=== PATIENT | female | born 1955 | race Caucasian/White ===

== ENCOUNTER 2017-01-15 07:18 | Day surgery (SDC) | payer MEDICARE, OTHER ==
[~2017-01-15 07:18] MED LIST: Lactated Ringers 1,000 ML IV SCH; Lidocaine 1%/Sod Bicarbonate in NS 8.4% 1 ML Syringe PRN; Sodium Chloride 0.9% 10 ML Syringe FLUSH PRN
[2017-01-15] MEDS ORDERED: Rocuronium 50 MG/5 ML Vial ONE (07:20)
[2017-01-15] MEDS ORDERED: Ondansetron 4 MG/2 ML SDV ONE (07:20)
[2017-01-15] MEDS ORDERED: Propofol 200 MG/20 ML SDV ONE (07:20)
[2017-01-15] MEDS ORDERED: fentaNYL 100 MCG/2 ML SDV ONE (07:20)
[2017-01-15] MEDS ORDERED: ceFAZolin 1 GM Vial ONE (07:21)
[2017-01-15] MEDS ORDERED: Midazolam 1 MG/ML 2 ML SDV ONE (07:21)
[2017-01-15] MEDS ORDERED: Lidocaine 1% 4 ML ONE (07:21)
[2017-01-15] MEDS ORDERED: Ropivacaine 0.5% 5 MG/ML 30 ML SDV ONE (07:32)
[2017-01-15] MEDS ORDERED: EPINEPHrine 1 MG/ML SDV ONE (07:32)
[2017-01-15] MEDS ORDERED: Lidocaine 1% 2 ML ONE (07:33)
--- NOTE | 2017-01-15 07:47 | PCM.PREANE ---
Preanesthetic Assessment - Anesthesia/Transfusion/Family Hx Anesthesia History: Prior Anesthesia Without Reaction Family History of Anesthesia Reaction: No Transfusion History: No Prior Transfusion(s) - Review of Systems General: No Symptoms Pulmonary: No Symptoms Cardiovascular: No Symptoms Gastrointestinal: No Symptoms Neurological: No Symptoms Other: Reports: Thyroid Problems - Physical Assessment NPO Status Date: 01/14/17 NPO Status Time: 00:00 Pulse: 79 O2 Sat by Pulse Oximetry: 96 Respiratory Rate: 16 Blood Pressure: 108/51 Temperature: 37.3 C Height: 1.6 m Weight: 85.729 kg ASA Class: 3 Mental Status: Alert & Oriented x3 Dentition: Reports: Bridge (bottom right) Thyro-Mental Finger Breadths: 3 Mouth Opening Finger Breadths: 3 ROM/Head Extension: Full Lungs: Clear to Auscultation, Normal Respiratory Effort Cardiovascular: Regular Rate, Regular Rhythm - Lab Values: Laboratory Last Values MRSA (PCR) Negative 01/02/17 11:16 - Allergies Allergies/Adverse Reactions: Allergies Allergy/AdvReac Type Severity Reaction Status Date / Time atorvastatin calcium Allergy malaise Verified 01/12/17 16:02 [From Lipitor] azithromycin [From Zithromax] Allergy Mouth Sores Verified 01/12/17 16:02 latex Allergy Rash Verified 01/12/17 16:02 Penicillins Allergy Mouth Sores Verified 01/12/17 16:02 rosuvastatin [From Crestor] Allergy malaise Verified 01/12/17 16:02 - Anesthesia Plan Pre-Op Medication Ordered: Beta Angelina Beta Angelina: Metoprolol Med Last Dose Date: 01/15/17 Med Last Dose Time: 06:30 - Acknowledgements Anesthesia Type Planned: General Anesthesia, Regional Block (interscalene block for post op pain control) Pt an Appropriate Candidate for the Planned Anesthesia: Yes Alternatives and Risks of Anesthesia Discussed w Pt/Guardian: Yes Pt/Guardian Understands and Agrees with Anesthesia Plan: Yes PreAnesthesia Questionnaire HEENT History: Reports: Impaired Vision, Other (See Below) Other HEENT History: wears glasses Cardiovascular History: Reports: High Cholesterol, Hypertension Respiratory History: Reports: Sleep Apnea Other Respiratory History: CPAP Gastrointestinal History: Reports: GERD, Hiatal Hernia, Irritable Bowel Syndrome Other Gastrointestinal History: LUQ pain, sheila's gland hyperplasia of duodenum, gastritis, gastruc ulcer, peptic stricture of esophagus, reflux esophagitis Genitourinary History: Reports: Other (See Below) Other Genitourinary History: renal insufficiency, increased serum creatinine SCARRER History: Reports: None Musculoskeletal History: Reports: Back Pain, Chronic, Fibromyalgia, Other (See Below) Other Musculoskeletal History: bilateral carpal tunnel syndrome, lumbar degenerative disc disease Neurological History: Reports: None Psychiatric History: Reports: Anxiety, Depression Other Psychiatric History: history of psychotherapy treatment Endocrine/Metabolic History: Reports: Hypothyroidism, Obesity/BMI 30+ Hematologic History: Reports: Anemia Immunologic History: Reports: None Oncologic (Cancer) History: Reports: None Dermatologic History: Reports: Psoriasis - Past Surgical History Head Surgeries/Procedures: Reports: None GI Surgical History: Reports: Colonoscopy, EGD Other Musculoskeletal Surgeries/Procedures:: L carpal tunnel release, L3 discectomy and fusion, L4L5 laminectomy, L shoulder surgery - SUBSTANCE USE Smoking Status *Q: Never Smoker Second Hand Smoke Exposure: No Recreational Drug Use History: No - HOME MEDS Home Medications: Home Meds Methylcellulose [Citrucel] 500 mg PO BID 01/13/15 [History] Metoprolol Succinate [Toprol XL] 25 mg PO DAILY 01/13/15 [History] buPROPion [Wellbutrin XL] 150 mg PO DAILY 01/13/15 [History] buPROPion [Wellbutrin XL] 300 mg PO DAILY 01/13/15 [History] Ascorbic Acid [Vitamin C] 250 mg PO DAILY 01/12/17 [History] C-Bi-Est 1 dose .ROUTE DAILY 01/12/17 [History] C-Progesterone 1 applic .ROUTE DAILY 01/12/17 [History] Cholecalciferol (Vitamin D3) [Vitamin D3] 1 ml PO DAILY 01/12/17 [History] Diclofenac Sodium/Misoprostol [Arthrotec 75 mg-200 Mcg Tab] 1 tab PO BID [History] Fluocinonide [Lidex 0.05% Crm] 1 applic TOP DAILY PRN 01/12/17 [History] Lisinopril 10 mg PO DAILY 01/12/17 [History] Loteprednol Etabonate [Lotemax] 1 applic EYEBOTH BEDTIME PRN 01/12/17 [History] Metaxalone [Skelaxin] 800 mg PO TID 01/12/17 [History] Olopatadine HCl [Pataday] 1 drop EYEBOTH BEDTIME 01/12/17 [History] Omeprazole 40 mg PO BID 01/12/17 [History] Pravastatin Sodium 20 mg PO DAILY 01/12/17 [History] Ranitidine [Zantac] 150 mg PO BEDTIME 01/12/17 [History] Thyroid [[place] Thyroid] 60 mg PO SUTUTHSA 01/12/17 [History] Thyroid [[place] Thyroid] 90 mg PO MOWEFR 01/12/17 [History] Vortioxetine Hydrobromide [Trintellix] 10 mg PO DAILY 01/12/17 [History] Acetaminophen/oxyCODONE [Percocet 325-5 MG] 1 - 2 tab PO Q6H PRN #40 tablet [Rx] Cyclobenzaprine [Flexeril] 10 mg PO TID PRN #40 tablet 01/15/17 [Rx] - CURRENT (IN HOUSE) MEDS Current Meds: Current Medications Lactated Ringer's (Ringers, Lactated) 1,000 mls @ 125 mls/hr IV ASDIRECTED JIGNESH Stop: 01/15/17 23:00 Lidocaine/Sodium Bicarbonate (Buffered Lidocaine 1% In Ns 8.4%) 0.25 ml .XX ONETIME PRN PRN Reason: Prior to IV Start Stop: 01/15/17 18:00 Sodium Chloride (Saline Flush) 10 ml FLUSH ASDIRECTED PRN PRN Reason: Keep Vein Open Stop: 01/15/17 18:00 Discontinued Medications Cefazolin Sodium (Ancef) Confirm Administered Dose 2 gm .ROUTE .STK-MED ONE Stop: 01/15/17 07:22 Epinephrine HCl (Adrenalin 1:1000) Confirm Administered Dose 1 mg .ROUTE .STK- MED ONE Stop: 01/15/17 07:33 Fentanyl (Sublimaze) Confirm Administered Dose 100 mcg .ROUTE .STK-MED ONE Stop: 01/15/17 07:21 Lactated Ringer's (Ringers, Lactated) 1,000 mls @ 125 mls/hr IV ASDIRECTED JIGNESH Stop: 01/11/17 23:00 Lidocaine HCl (Xylocaine-Mpf 1%) Confirm Administered Dose 4 mls @ as directed .ROUTE .STK-MED ONE Stop: 01/15/17 07:22 Lidocaine HCl (Xylocaine-Mpf 1%) Confirm Administered Dose 2 mls @ as directed .ROUTE .STK-MED ONE Stop: 01/15/17 07:34 Lidocaine/Sodium Bicarbonate (Buffered Lidocaine 1% In Ns 8.4%) 0.25 ml .XX ONETIME PRN PRN Reason: Prior to IV Start Stop: 01/11/17 18:00 Midazolam HCl (Versed 1 Mg/Ml) Confirm Administered Dose 2 mg .ROUTE .STK-MED ONE Stop: 01/15/17 07:22 Ondansetron HCl (Zofran) Confirm Administered Dose 4 mg .ROUTE .STK-MED ONE Stop: 01/15/17 07:21 Propofol (Diprivan 20 Ml) Confirm Administered Dose 200 mg .ROUTE .STK-MED ONE Stop: 01/15/17 07:21 Rocuronium [place] (Zemuron) Confirm Administered Dose 50 mg .ROUTE .STK-MED ONE Stop: 01/15/17 07:21 Ropivacaine (Naropin 0.5%) Confirm Administered Dose 30 ml .ROUTE .STK-MED ONE Stop: 01/15/17 07:33 Sodium Chloride (Saline Flush) 10 ml FLUSH ASDIRECTED PRN PRN Reason: Keep Vein Open Stop: 01/11/17 18:00
--- NOTE | 2017-01-15 08:50 | PCM.SN ---
- Free Text/Narrative Note: Note: 01/15/2017 0847 120/71 75 100% 16 Surgeon and pt request post-op pain control for right shoulder surgery risk of block failure, facial numbness, site infection, and chronic pain discussed with pt and agreed to proceed. All standard monitors est. EKG, BP, Pulse Ox, 2L O2 and 2ml versed, 1ml fentanyl pre-op dx. right shoulder pain post-op dx right shoulder arthroscopy pt for interscalene block placement all standard monitors est. pt ID time out performed IV sedation 2ml versed, 1ml fentanyl, 2L NC O2, sterile prep and drape of right neck and shoulder U/S placed with visualization of brachial plexus from clavicle to cricoid local skin infiltration 22ga. Stimplex A insulated needle visualized at brachial plexus nerve stimulator at .9 Vanessa Amps stop at .3 Vanessa Amps with good bicep twitch with 1ml NaCl and lose of twitch neg aspirations every 5ml of 0.5% ropivacaine and 1:200,000 epi total of 30ml injected all done with U/S guidance needle withdrawn no complications noted pt tolerated procedure well block settling in start procedure at 0804 end procedure at 0824 119/62 79 100% 20
[2017-01-15] MEDS ORDERED: Bupivacaine 0.25% 10 ML SDV ONE ×2 (09:53→10:17)
[2017-01-15] MEDS ORDERED: EPINEPHrine 1 MG/ML 30 ML MDV ONE (09:54)
[2017-01-15] MEDS ORDERED: Dexamethasone 4 MG/ML 5 ML MDV ONE (11:22)
--- NOTE | 2017-01-15 12:31 | PCM.POSTAN ---
POST ANESTHESIA ASSESSMENT - MENTAL STATUS Mental Status: Alert, Oriented - VITAL SIGNS Pulse Rate: 81 SaO2: 96 Resp Rate: 14 Blood Pressure: 119/68 Temperature: 36.3 C - RESPIRATORY Respiratory Status: respiratory rate WNL, Airway Patent, O2 Saturation Stable, Supplemental Oxygen - CARDIOVASCULAR CV Status: Pulse Rate WNL, Blood Pressure Stable - GASTROINTESTINAL GI Status: No Symptoms - PAIN Pain Score: 0 - POST OP HYDRATION Hydration Status: Adequate & Stable - OBSERVATIONS Free Text/Narrative:: no anesthetic complications noted
[2017-01-15] MEDS ORDERED: fentaNYL 100 MCG/2 ML SDV IVPUSH PRN (12:35)
--- NOTE | 2017-01-15 13:00 | PCM48HPAN ---
Post Anesthesia Note - EVALUATION WITHIN 48HRS OF ANESTHETIC Vital Signs in Normal Range: Yes Patient Participated in Evaluation: Yes Respiratory Function Stable: Yes Airway Patent: Yes Cardiovascular Function Stable: Yes Hydration Status Stable: Yes Pain Control Satisfactory: Yes Nausea and Vomiting Control Satisfactory: Yes Mental Status Recovered: Yes
[2017-01-15] MEDS ORDERED: Acetaminophen/oxyCODONE 325-5 MG Tab PO PRN ×3 (14:10→14:28)
[2017-01-15 15:25] VITALS: BP 120/62
--- NOTE | 2017-01-17 22:59 | PCM.OPNOTE ---
- General Post-Op/Procedure Note Date of Surgery/Procedure: 01/15/17 Operative Procedure(s): right shoulder video arthroscopy with massive rotator cuff repair, subacromial decompression and limited debridement Pre Op Diagnosis: right shoulder rotator cuff tear with impingment Post-Op Diagnosis: Same Anesthesia Technique: General ET Tube, Regional Block Primary Surgeon: Karthikeyan Lucio Anesthesia Provider: John Giron Supply Teacher: Stephanie Mann EBL in mLs: 5 Complications: None Condition: Good
--- NOTE | 2017-01-18 | OR ---
DATE OF OPERATION: 01/15/2017 SURGEON: Karthikeyan Lucio MD OPERATION PERFORMED: 1. Right shoulder video arthroscopy with massive rotator cuff repair. 2. Subacromial decompression. 3. Limited debridement of subacromial space. PREOPERATIVE DIAGNOSIS: Right shoulder rotator cuff tear with impingement. POSTOPERATIVE DIAGNOSIS: Right shoulder rotator cuff tear with impingement. ANESTHESIA: Technique, general endotracheal intubation with interscalene block. ANESTHESIA PROVIDER: John Giron. STENOCAPTIONER: Stephanie Mann PA-C. ESTIMATED BLOOD LOSS: 5 mL. COMPLICATIONS: None. CONDITION: Stable. DESCRIPTION OF PROCEDURE: The patient was identified in the preop holding area. Proper site was marked and identified by the surgeon. The patient was taken back to the operating theater where after adequate anesthesia, the patient was placed in a lazy right lateral decubitus position. All bony prominences were well padded. The patient was secured to the table. At this time, right upper extremity was sterilely prepped and draped in the usual sterile fashion. OR time-out was performed. The patient received 2 g of IV Ancef, 15 pounds of traction was applied to the right upper extremity. At this time, standard posterior incision was made. Scope trocar was introduced to the glenohumeral joint. At this time, anterior portal was also created with the use of spinal needle. Initial examination showed no signs of chondromalacia. The biceps tendon showed a previous rupture. Subscapularis tendon was intact. At this time, there was noted to be a massive rotator cuff tear all the way of the supra and infraspinatus and medial part of the teres minor. At this time, the patient had extreme synovitis. Scope was then removed and placed in the subacromial space. A limited bursectomy and synovectomy was then performed to allow for fixation of rotator cuff. The tendon was found to have good excursion laterally for a good repair. At this time, a triple loaded 4.75 mm SwiveLock Arthrex anchor was then placed medially near the footprint. The footprint was medialized at this time with the use of a 404 radius bur and a good bony bleeding bed was made for attachment of the tendon. At this time, 2 limbs of FiberTape as well as 4 limbs of FiberWire were then passed starting from anterior to posterior. It was found to have adequate coverage of the footprint and at this time 2 limbs of FiberWire were then tied anteriorly and then 2 were tied posteriorly, one limb of each of the sutures then cut, all 4 limbs including the 2 limbs of the FiberTape were then brought out laterally, 4.75 mm SwiveLock anchor. At this time, the patient was found to have very poor bone laterally, but we were able to on the second try get adequate fixation for a double-row repair, it was found to have adequate watertight repair both on fluoroscopic imaging. At this time, attention was turned to the subacromial space. A Bovie cautery was used for identification of the anterior spur off the acromion and acromioplasty was then performed down to a smooth edge even with the posterior border of the acromion for subacromial decompression/acromioplasty. At this time, excess saline was drained from the shoulder. A 3-0 nylon simple suture was used for closure of the skin. The patient was placed in a pillow sling and a sterile soft dressing, was sent to PACU in stable condition. LU /[id number]
== END 2017-01-15 15:15 | disposition home or self-care (01) ==
LOC: JD.SDS 07:18
PROVIDERS: ATTEND Orthopaedic Surgery
DX: M75.101 Unspecified rotator cuff tear or rupture of right shoulder, not specified as traumatic (principal); M75.41 Impingement syndrome of right shoulder; K21.9 Gastro-esophageal reflux disease without esophagitis; E66.9 Obesity, unspecified; F41.1 Generalized anxiety disorder; F33.0 Major depressive disorder, recurrent, mild; E03.4 Atrophy of thyroid (acquired); I10 Essential (primary) hypertension; G47.30 Sleep apnea, unspecified; Z88.8 Allergy status to other drugs, medicaments and biological substances; Z98.890 Other specified postprocedural states; Z79.899 Other long term (current) drug therapy; Z88.0 Allergy status to penicillin; Z91.040 Latex allergy status; Z68.31 Body mass index [BMI] 31.0-31.9, adult; M25.511 Pain in right shoulder
CPT/HCPCS: 29826; 29827; 87641; A9270; C1713; J0171; J0690; J1100; J2250; J2405; J2795; J3010; J7120; 01638; 64415; J2704

== ENCOUNTER → 2023-04-04 | Day surgery (SDC) | payer MEDICARE, OTHER ==
[~2023-04-04] MED LIST changes: +Acetaminophen 325 MG Tab PO SCH; +Dexamethasone 4 MG/ML 5 ML MDV ONE; +HYDROmorphone 0.5 MG/0.5 ML Syringe IVPUSH PRN; +Ketorolac 30 MG/ML SDV ONE; +Lidocaine 1% 5 ML VIAL ONE; -Lidocaine 1%/Sod Bicarbonate in NS 8.4% 1 ML Syringe PRN; +Midazolam 1 MG/ML 2 ML SDV ONE; +Ondansetron 4 MG/2 ML SDV IVPUSH PRN; +Ondansetron 4 MG/2 ML SDV ONE; +Pregabalin 25 MG Cap PO SCH; +Propofol 200 MG/20 ML SDV ONE; +Ropivacaine 0.5% 5 MG/ML 30 ML SDV ONE; +Sodium Chloride 0.9% 10 ML Syringe FLUSH SCH; +Succinylcholine 200 MG/10 ML MDV ONE; +ceFAZolin 2 GM Vial ONE; +ePHEDrine 50 MG/ML SDV ONE; +fentaNYL 100 MCG/2 ML SDV IVPUSH PRN; +fentaNYL 100 MCG/2 ML SDV ONE; +oxyCODONE ER 10 MG TAB.ER PO SCH
[2023-04-04] MEDS: Vancomycin 1 GM SDV ONE ×2 (08:37→11:20)
[2023-04-04] MEDS: Tranexamic Acid 1,000 MG/10 ML Vial ONE ×2 (08:37→11:20)
[2023-04-04 13:04] VITALS: PULSE 90
[2023-04-04 15:25] VITALS: BP 109/79
== END | disposition home or self-care (01) ==
LOC: JD.SDS 06:45
PROVIDERS: ATTEND Orthopaedic Surgery
DX: M75.102 Unspecified rotator cuff tear or rupture of left shoulder, not specified as traumatic (principal); I10 Essential (primary) hypertension; F41.9 Anxiety disorder, unspecified; F32.A Depression, unspecified; K21.9 Gastro-esophageal reflux disease without esophagitis; E66.9 Obesity, unspecified; Z68.32 Body mass index [BMI] 32.0-32.9, adult; G47.30 Sleep apnea, unspecified; E78.00 Pure hypercholesterolemia, unspecified; E03.9 Hypothyroidism, unspecified; Z79.82 Long term (current) use of aspirin; Z79.890 Hormone replacement therapy; Z79.899 Other long term (current) drug therapy; Z88.0 Allergy status to penicillin; Z88.1 Allergy status to other antibiotic agents; Z91.040 Latex allergy status; Z88.8 Allergy status to other drugs, medicaments and biological substances
CPT/HCPCS: 23472; 76000; 97110; 97161; A9270; C1713; C1769; C1776; J0330; J0690; J1100; J1885; J2250; J2405; J2704; J2795; J3010; J3370; J7030; J7120; 01638; J3490

== ENCOUNTER 2024-12-11 10:00 | Day surgery (SDC) | payer MEDICARE, OTHER ==
[~2024-12-11 10:00] MED LIST changes: -Acetaminophen 325 MG Tab PO SCH; +Brimonidine 0.2% Ophth Soln 5 ML Bottle EYELF SCH; +Cefuroxime 10 MG/ML SYRINGE EYELF SCH; -Dexamethasone 4 MG/ML 5 ML MDV ONE; -HYDROmorphone 0.5 MG/0.5 ML Syringe IVPUSH PRN; -Ketorolac 30 MG/ML SDV ONE; -Lactated Ringers 1,000 ML IV SCH; -Lidocaine 1% 5 ML VIAL ONE; +Lidocaine 1% PF 2 ML SDV INJECT SCH; -Midazolam 1 MG/ML 2 ML SDV ONE; -Ondansetron 4 MG/2 ML SDV IVPUSH PRN; -Ondansetron 4 MG/2 ML SDV ONE; +Phenylephrine 2.5% Ophth Soln 2 ML Bot EYELF SCH; +Pilocarpine 4% Ophth Soln 15 ML Bot EYELF SCH; +Polymyxin B/Trimethoprim 10 ML Bottle EYELF SCH; -Pregabalin 25 MG Cap PO SCH; -Propofol 200 MG/20 ML SDV ONE; -Ropivacaine 0.5% 5 MG/ML 30 ML SDV ONE; -Sodium Chloride 0.9% 10 ML Syringe FLUSH PRN; -Sodium Chloride 0.9% 10 ML Syringe FLUSH SCH; -Succinylcholine 200 MG/10 ML MDV ONE; +Tetracaine HCl/PF 0.5% 4 ML Bottle EYEBOTH SCH; +Tropicamide 1% Ophth Soln 15 ML Bottle EYELF SCH; -ceFAZolin 2 GM Vial ONE; -ePHEDrine 50 MG/ML SDV ONE; -fentaNYL 100 MCG/2 ML SDV IVPUSH PRN; -fentaNYL 100 MCG/2 ML SDV ONE; -oxyCODONE ER 10 MG TAB.ER PO SCH
[2024-12-11 10:10] VITALS: BP 132/41; PULSE 87
[2024-12-11] MEDS: Polymyxin B/Trimethoprim 10 ML Bottle EYELF SCH (10:13)
[2024-12-11] MEDS: LORazepam 1 MG Tab PO ONE (10:17)
[2024-12-11] MEDS: Brimonidine 0.2% Ophth Soln 5 ML Bottle EYELF SCH (10:21)
[2024-12-11] MEDS: Phenylephrine 2.5% Ophth Soln 2 ML Bot EYELF SCH (10:28)
[2024-12-11] MEDS: Tropicamide 1% Ophth Soln 3 ML Bottle EYELF SCH (10:30)
[2024-12-11] MEDS: Tetracaine HCl/PF 0.5% 4 ML Bottle EYEBOTH SCH (11:09)
[2024-12-11] MEDS: Lidocaine 1% PF 2 ML SDV INJECT SCH (11:46)
[2024-12-11] MEDS: Cefuroxime 10 MG/ML SYRINGE EYELF SCH (12:00)
[2024-12-11] MEDS: Pilocarpine 4% Ophth Soln 15 ML Bot EYELF SCH (12:01)
== END 2024-12-11 12:10 | disposition home or self-care (01) ==
LOC: JD.SDS 10:00
PROVIDERS: ATTEND Ophthalmology
DX: H25.813 Combined forms of age-related cataract, bilateral (principal); H40.013 Open angle with borderline findings, low risk, bilateral; H18.513 Endothelial corneal dystrophy, bilateral; H16.103 Unspecified superficial keratitis, bilateral; H16.223 Keratoconjunctivitis sicca, not specified as Sjogren's, bilateral; H35.373 Puckering of macula, bilateral; I10 Essential (primary) hypertension; K21.9 Gastro-esophageal reflux disease without esophagitis; Z79.899 Other long term (current) drug therapy; Z88.0 Allergy status to penicillin
CPT/HCPCS: A9270-GY; J3490

== ENCOUNTER 2025-01-15 07:44 | Day surgery (SDC) | payer MEDICARE, OTHER ==
[2025-01-15] MEDS: Polymyxin B/Trimethoprim 10 ML Bottle EYERT SCH (06:52)
[2025-01-15] MEDS: Tetracaine HCl/PF 0.5% 4 ML Bottle EYEBOTH SCH (06:52)
[2025-01-15] MEDS: Lidocaine 1% PF 2 ML SDV INJECT SCH (06:52)
[2025-01-15] MEDS: Cefuroxime 10 MG/ML SYRINGE EYERT SCH (06:52)
[2025-01-15] MEDS: Pilocarpine 4% Ophth Soln 15 ML Bot EYERT SCH (06:52)
[2025-01-15] MEDS: Tropicamide 1% Ophth Soln 3 ML Bottle EYERT SCH (08:16)
[2025-01-15 09:44] VITALS: BP 121/78; PULSE 87
== END 2025-01-15 09:39 | disposition home or self-care (01) ==
LOC: JD.SDS 07:44
PROVIDERS: ATTEND Ophthalmology
DX: H25.811 Combined forms of age-related cataract, right eye (principal); I10 Essential (primary) hypertension; E78.00 Pure hypercholesterolemia, unspecified; E03.9 Hypothyroidism, unspecified; E66.9 Obesity, unspecified; Z96.1 Presence of intraocular lens; Z88.0 Allergy status to penicillin; Z88.8 Allergy status to other drugs, medicaments and biological substances; Z79.82 Long term (current) use of aspirin; Z79.890 Hormone replacement therapy; Z79.899 Other long term (current) drug therapy; Z91.040 Latex allergy status; Z68.30 Body mass index [BMI] 30.0-30.9, adult
CPT/HCPCS: 66984; A9270; J0697; J3490